=== PATIENT | female | born 1960 | race Caucasian/White ===

== ENCOUNTER → 2018-06-09 14:23 | Outpatient (CLI) | payer OTHER, BC, SELFPAY ==
--- NOTE | 2018-06-09 14:28 | RAD_ITS ---
STUDY: X-RAY - ABDOMEN/PELVIS REASON FOR EXAM: Female, 58 years old. Constipation and diarrhea TECHNIQUE: Two AP supine views of the abdomen and pelvis. COMPARISON: None. FINDINGS: Normal visualized lung bases. There is an unremarkable bowel gas pattern. There is no demonstrated free abdominal air. The visualized liver, spleen and kidneys are grossly normal in size and morphology. Normal soft tissue structures. Normal visualized osseous structures. RAD/Abd Inc Decub and/or Erect IMPRESSION: Normal x-ray examination of the abdomen and pelvis. Electronically Signed: Erickson Cruz MD at 23:31 EDT Tel , Service support ,
== END ==
PROVIDERS: Family Provider Family Medicine; PCP Family Medicine; Visit Provider Family Medicine
DX: R19.7 Diarrhea, unspecified (principal)
CPT/HCPCS: 74019

== ENCOUNTER → 2018-06-20 19:13 | Outpatient (CLI) | payer OTHER, BC, SELFPAY ==
[2018-06-27 13:11] LABS: HPV APTIMA, High Risk Negative
== END ==
PROVIDERS: Visit Provider Obstetrics & Gynecology
DX: Z12.4 Encounter for screening for malignant neoplasm of cervix (principal)
CPT/HCPCS: 88175; G0145

== ENCOUNTER → 2018-07-07 16:25 | Outpatient (CLI) | payer OTHER, BC, SELFPAY ==
--- NOTE | 2018-07-07 16:28 | BI_ITS ---
MAMMOGRAPHY - BILATERAL SCREENING 3-D LOS SYNTHESIS REASON FOR EXAM: Female, 58 years old. Asymptomatic. PERTINENT HISTORY: Paternal grandmother. TECHNIQUE: Digital bilateral breast los (3D mammographic acquisition) in the CC and MLO projections. 2-D mediolateral oblique (MLO) and craniocaudad (CC) views of both breasts were obtained. CAD: Full Field Digital Mammography with Computer Added Detection was performed. COMPARISON: 03/28/2015 digital mammogram, digitized film mammogram 07/30/2009. FINDINGS: The breast composition is heterogeneously dense that can obscure small breast masses. No significant asymmetric density, architecture distortion, abnormal microcalcification cluster, dominant mass, adenopathy, skin thickening or nipple retraction identified. Coarse benign-appearing calcifications. BI/SCREENING MAMM (CAD), BILAT IMPRESSION: No mammographic signs of malignancy. Routine yearly mammograms recommended. ASSESSMENT CATEGORY: BIRADS Category 2: Benign. A letter regarding these results will be sent to the patient by the facility within 30 days. FOLLOW UP RECOMMENDATION: Yearly follow up mammogram recommended. (A) Negative mammographic results should not deter biopsy as a palpable lesion should be followed on clinical grounds and biopsy performed if clinically persistent for 3 months or increasing size. Approximately 10% of breast cancers are not detected by mammography. A normal mammogram should not delay biopsy of a clinically suspicious abnormality. Electronically Signed: Fer Sanon, at 22:34 EDT Tel , Service support ,
== END ==
PROVIDERS: Family Provider Family Medicine; PCP Family Medicine; Visit Provider Obstetrics & Gynecology
DX: Z12.31 Encounter for screening mammogram for malignant neoplasm of breast (principal)
CPT/HCPCS: 77063; 77067

== ENCOUNTER → 2019-01-26 14:45 | Outpatient (CLI) | payer OTHER, BC, SELFPAY ==
[2018-12-01 12:07] VITALS: BMI 21.9
--- NOTE | 2019-01-26 14:50 | RAD_ITS ---
STUDY: X-RAY - THORACIC SPINE REASON FOR EXAM: Female, 58 years old. Back pain. TECHNIQUE: 2 view(s) of the thoracic spine were obtained. COMPARISON: None. FINDINGS: Normal kyphosis of the thoracic spine. There is no substantial scoliosis. Normal thoracic vertebrae and endplates. There is mild disc space narrowing at multiple levels. There is no evidence of acute fracture or loss of vertebral axial height. The soft tissue structures are unremarkable. RAD/Thoracic Spine 3 Views IMPRESSION: Mild degenerative disc disease. Electronically Signed: Carlos Beyer DO at 20:19 EST Tel [phone], Service support ,
== END ==
PROVIDERS: Family Provider Family Medicine; PCP Family Medicine; Referring Provider Family Medicine; Visit Provider Family Medicine
DX: M54.6 Pain in thoracic spine (principal)
CPT/HCPCS: 72072

== ENCOUNTER 2019-04-05 17:00 | Outpatient (RCR) | payer OTHER, BC, SELFPAY ==
[2018-12-01 12:07] VITALS: BMI 21.9
--- NOTE | 2019-02-15 09:17 | HP.PTEVAL ---
Patient's Visit Information LUH DELEON is a 58 year old F referred to Physical Therapy by Francesco Zamora MD with a diagnosis of Thoracic spine pain. Date of Evaluation: 02/15/19 Physical Therapist: Adán Augustin, PT, ATC - Visit Plan Frequency: 2x /Week Duration: 2-4 Weeks Plan: Postural edu, DTR to C/S, scap stab ex's, C Tx, and HEP. Performed trial of CTx today 16#/8#, 30 sec/10 sec x 10 min, assess benefit next Rx - Subjective Findings: Pt reports she has had intermittent T/S pain for 3-4 months. Pt reports the pain is more of an annoyance at this time. Pt reports her neck pain is worse than her back pain and she intends to call her DrSyeda about that today. Pt reports her pain has progressively worsened over this time span. Pt reports now she has occasional difficulty with washing dishes and sleeping secondary to pain. Pt reports she did have recent xrays which revealed degenerative disc disease in her T/S. Pt denies any radiculopathy at this time. Pt denies any prior Hx of T/S pain prior to this episode. 2/10 at rest, 6/10 at worst. - Pain Thoracic spine Pain Intensity (Out of 10): 2 Pain Intensity Range: 6 - Objective Neuro: B UE sensation is WNL to light touch. B bicepital reflex= 2/3. ROM: T/S is WNL in all ranges. Cervical spine is limited with both retraction and extension. Both of those movements produce pain to the T/S region. MMT: B UE's are rated at 5/5 throughout. Repeated movements: RRIS increased neck pain and produced increased T/S sx's. - Goals Goal 1:: Decrease neck and thoracic spine pain x 50% to aid with sleep Goal Time Frame: 2-4 Weeks Goal 2:: Increase C/S ROM to WNL to aid with IADL's Goal Time Frame: 2-4 Weeks Goal 3:: I with HEP Goal Time Frame: 2-4 Weeks - Rehabilitation Potential Physical Therapy Diagnosis: Pt has pain that originates in her neck and extends to the thoracic spine secondary to deg changes in the cervical spine Rehabilitation Potential: Good - Anticipated Interventions Patient/Client Instruction: Educate patient on: Condition, Plan of Care For the Purpose of:: To improve self management Therapeutic Exercise to Include: Strength training, Postural training, French Exercises, Scapular Strength/Stabilization For the Purpose of:: To decrease pain, To increase ROM, To improve muscle performance and motor function Manual Therapy Techniques to Include: Soft tissue mobilization For the Purpose of:: To decrease pain Intermittent cervical traction: Yes For the Purpose of:: To decrease pain Thank you for the opportunity to evaluate your patient. For Medicare and Medicare HMO plans, please review the plan of care and approve it. It will need to be FAXED BACK to us at [phone] for Medicare purposes. For Medicare only, by signing this I certify the plan of care. Please let me know if there are questions or concerns regarding this plan of care. Physician Signature: Date:
--- NOTE | 2019-04-05 17:48 | HP.PTDCSUM ---
HP - PT D/C Summary It has been my pleasure to treat A WILLIAM DELEON under orders from Francesco Palmer MD, for the diagnosis of Thoracic spine pain for a total of 11 visit(s). Discharge Date: 04/05/19 Please see the following information for a summary of their discharge status. - Subjective Subjective: PATIENT REPORTS SHE IS BETTER. SHE REPORTS SHE CAN STAND TO DO DISHES WITH LESS PAIN NOW. SHE THINKS THE STRETCHING HELPED. NO CHANGE IN COMFORT WITH SLEEPING. SLEEP IS STILL DISTURBED. HEP HELPS AND WORK RIGHT NOW INCREASES PAIN AT TIMES. LOOKING DOWN A LOT AGGREVATES IT. HAD A HEADACHE EARLY BUT EX'S ABOLISHED. PATIENT REPORTS SHE WANTS TO TRY TO CONTINUE HER HOME EX'S WITHOUT PT AT THIS TIME. WILL FOLLOW UP WITH DR. PALMER NEEDED. - Pain Thoracic spine Pain Intensity (Out of 10): 0 HEADACHE Pain Intensity (Out of 10): 0 NECK PAIN Pain Intensity (Out of 10): 1 - Overall Improvement % Improvement: 50 - Objective Objective/Function: THIS PATIENT HAS IMPROVED WITH PT BUT STILL HAS SIGNIFICANT SX'S. SHE IS INDEP WITH A HEP AND DEMONSTRATES A GOOD UNDERSTANDING OF ALL INSTRUCTIONS THAT HAVE BEEN GIVEN. Sitting Posture/Standing Posture: FAIR. Active Correction of posture: BETTER. Motor deficit: REYMUNDO UE'S 5/5. Sensory deficit: NO. ROM deficit: WFL REYMUNDO UE'S. Reflexes: NT. Dural Signs: NEGATIVE. Cervical Mvmt Loss: Flex: NIL. Pro: NIL. Ext: MIN. Ret: MIN. RSB: NIL. LSB: NIL. R Rot: NIL. L Rot: NIL. Postural strength: GOOD. Palpation: MILD TENDERNESS RIGHT MEDIAL SCAP REGION. NO CERVICAL OR THORACIC SPINE TENDERNESS. - Goals Goal 1:: Decrease neck and thoracic spine pain x 50% to aid with sleep Goal Progress: Progressing Goal 2:: Increase C/S ROM to WNL to aid with IADL's Goal Progress: Progressing Goal 3:: I with HEP Goal Progress: Goal Met - Plan Plan: D/C TO INDEP HEP. PATIENT IS AGREEABLE. - D/C Information If there are questions or concerns regarding this patient's physical therapy, please feel free to call me at [phone]. Thank you for the referral of this patient. Sincerely, Pattie Castelan, PT, Cert MDT
== END 2019-04-05 19:00 | disposition home or self-care (01) ==
LOC: PT 17:00
PROVIDERS: Family Provider Family Medicine; PCP Family Medicine; Referring Provider Family Medicine; Visit Provider Family Medicine
DX: M54.6 Pain in thoracic spine (principal)
CPT/HCPCS: 97012; 97110; 97140; 97161; 97530

== ENCOUNTER → 2020-06-14 09:57 | Outpatient (CLI) | payer OTHER, BC, SELFPAY ==
[2020-05-14 15:59] VITALS: BMI 21.9
[2020-06-14 12:20] LABS: Erythrocyte Sedimentation Rate 5 mm/hr (0-30)
[2020-06-14 12:22] LABS: Hematocrit 37.5 % (37-47); Hemoglobin 12.2 g/dL (12.0-15.0); Mean Corp Hgb Conc 32.5 g/dL (32-36); Mean Corpuscular Hgb 29.6 pg (27.0-32.0); Mean Platelet Vol. 10.3 fl (6.2-12.0); Platelet Count 253 K/mm3 (150-450); RBC Distribution Width CV 12.8 % (11.6-14.6); RBC Distribution Width SD 42.1 fl (35.1-43.9); Red Blood Count 4.12 M/mm3 (4.2-5.4); White Blood Count 5.4 K/mm3 (4.4-11.0)
[2020-06-14 12:48] LABS: Vitamin B12 846 pg/mL (211-911); Vitamin D,25 Hydroxy 45.2 ng/mL
[2020-06-14 13:03] LABS: AST(SGOT) 21 U/L (15-37); Alanine Aminotransfer ALT/SGPT 27 U/L (13-56); Alkaline Phosphatase 95 U/L (45-117); Anion Gap 5 (5-15); BUN 16 mg/dL (7-18); BUN/Creat Ratio 19.7 RATIO (10-20); Calcium,Total 9.1 mg/dL (8.5-10.1); Chloride 107 mmol/L (98-107); Cholesterol 262 mg/dL (200); Creatinine, Serum 0.81 mg/dL (0.55-1.02); EST Glomerular Filtration Rate 76 mL/min (>60); Est Glom Filt Rate - Afr Amer 92 mL/min (>60); Free T3 2.6 pg/mL (2.18-3.98); Globulin 3.9 g/dL (2.2-4.2); Glucose 80 mg/dL (74-106); High Density Lipoprotein 54 mg/dL; Iron 119 ug/dL (50-170); Potassium 3.7 mmol/L (3.5-5.1); Protein, Total 7.9 g/dL (6.4-8.2); Sodium Level 139 mmol/L (136-145); T4 Free Direct 0.91 ng/dL (0.76-1.46); Thyroid Stim Hormone (TSH) 2.56 uIU/mL (0.358-3.74); Triglycerides 196 mg/dL; Very Low Density Lipoprotein 39 mg/dL (5-40)
== END ==
PROVIDERS: PCP Family Medicine; Referring Provider Family Medicine; Visit Provider Family Medicine
DX: R53.83 Other fatigue (principal); Z13.220 Encounter for screening for lipoid disorders
CPT/HCPCS: 36415; 80053; 80061; 82306; 82533; 82607; 83540; 84439; 84443; 84481; 85027; 85652

== ENCOUNTER → 2020-06-26 16:46 | Outpatient (CLI) | payer OTHER, BC, SELFPAY ==
[2020-06-26 14:17] VITALS: BMI 21.9
== END ==
PROVIDERS: PCP Family Medicine; Referring Provider Nurse Practitioner Women's Health; Visit Provider Nurse Practitioner Women's Health
DX: N89.8 Other specified noninflammatory disorders of vagina (principal)
CPT/HCPCS: 87070; 87205

== ENCOUNTER → 2021-06-27 10:01 | Outpatient (CLI) | payer OTHER, SELFPAY ==
[2021-01-23 10:07] VITALS: BMI 21.9
--- NOTE | 2021-06-27 10:17 | BI_ITS ---
MAMMOGRAPHY - BILATERAL SCREENING 3-D TOMOSYNTHESIS REASON FOR EXAM: Female, 61 years old. Routine screening PERTINENT HISTORY: Grandmother with breast cancer.. TECHNIQUE: 2-D mammograms and 3-D Tomosynthesis of the breast (s) were performed. CAD was performed. COMPARISON: 2018 FINDINGS: The breast composition is heterogeneously dense that can obscure small breast masses. Scattered benign calcifications are seen. No dense spiculated masses or suspicious microcalcifications are identified. No architectural distortion is identified. There is no skin thickening or retraction. There has been no significant change since the prior study. BI/SCRN MAMM (CAD)W/LOS BILAT IMPRESSION: No mammographic signs of malignancy. Routine yearly mammograms recommended. ASSESSMENT CATEGORY: BIRADS Category 2: Benign. A letter regarding these results will be sent to the patient by the facility within 30 days. FOLLOW UP RECOMMENDATION: Yearly follow up mammogram recommended. (A) Approximately 10% of breast cancers are not detected by mammography. A normal mammogram should not delay biopsy of a clinically suspicious abnormality. Electronically Signed: Guilherme Hollingsworth MD at 11:08 EDT , Service support ,
== END ==
PROVIDERS: PCP Family Medicine; Referring Provider Nurse Practitioner Women's Health; Visit Provider Nurse Practitioner Women's Health
DX: Z12.31 Encounter for screening mammogram for malignant neoplasm of breast (principal); Z80.3 Family history of malignant neoplasm of breast
CPT/HCPCS: 77063; 77067

== ENCOUNTER → 2021-10-16 | Outpatient (CLI) | payer OTHER, SELFPAY | END | disposition home or self-care (01) | LOC: LABSPEC 10-17 09:09 | PROVIDERS: PCP Family Medicine; Visit Provider Family Medicine | DX: U07.1 COVID-19 (principal) | CPT/HCPCS: 87635; U0005; U0003 ==

== ENCOUNTER → 2022-07-23 | Outpatient (CLI) | payer BC, SELFPAY ==
--- NOTE | 2022-07-23 15:34 | CT_ITS ---
STUDY: CT ABDOMEN AND PELVIS WITH CONTRAST REASON FOR EXAM: Female, 62 years old. LLQ MEDIAL ABD PAIN *IV ORAL* RADIATION DOSAGE (If Supplied By Facility): CTDIvol = ( 12.73 ) mGy, DLP = ( 408.07 ) mGycm TECHNIQUE: Transaxial images were obtained from the dome of the diaphragm to the symphysis pubis without oral contrast. Oral and amp; IV Gastrografin and amp; 100mL Isovue-300 was administered. Sagittal and coronal images were reconstructed. Individualized dose optimization techniques were used for this CT. COMPARISON: None. FINDINGS: The visualized lung bases are unremarkable. The visualized portions of the heart are within normal limits. Liver is normal size and homogeneous attenuation. There is a tiny hypoattenuated density in the right lobe measuring approximately 4 mm which is too small to characterize. Bile ducts are not dilated.. Normal gallbladder and extrahepatic biliary system. Normal spleen. Normal pancreas. Normal bilateral adrenal glands. Normal right kidney. Normal left kidney. Normal visualized stomach. Normal small intestine. There are diverticular changes in the sigmoid colon with focal segmental thickening of the wall and narrowing the lumen with inflammatory stranding in the fat consistent with acute diverticulitis there is no peridiverticular abscess.. No evidence for acute appendicitis Normal abdominal aorta. Normal inferior vena cava. Normal retroperitoneum. Normal urinary bladder. Uterus not visualized consistent with hysterectomy. Intravaginal pessary is noted. Normal abdominal wall. Lumbar spine demonstrates mild spondylosis CT/Abdomen/Pelvis WITH Contrast IMPRESSION: Acute diverticulitis of the sigmoid colon without evidence for peridiverticular abscess.. Incidental finding of tiny hypoattenuated nodule in the liver which is too small to characterize but may be further assessed with ultrasound or MRI. Electronically Signed: Ronnell Gamble MD at 18:18 EDT ,
[2022-07-23 18:00] LABS: CREATININE FINGERSTICK < 0.9 mg/dL (0.55-1.02); EGFR FINGERSTICK > 60.0000 mL/min (>60)
== END | disposition home or self-care (01) ==
PROVIDERS: PCP Family Medicine; Referring Provider Family Medicine; Visit Provider Family Medicine
DX: R10.32 Left lower quadrant pain (principal)
CPT/HCPCS: 74177; Q9967

== ENCOUNTER → 2022-08-04 | Outpatient (CLI) | payer BC, SELFPAY ==
--- NOTE | 2022-08-04 07:49 | US_ITS ---
STUDY: ABDOMINAL ULTRASOUND - RIGHT UPPER QUADRANT REASON FOR VISIT: Female, 62 years old hepatic lesion TECHNIQUE: Ultrasound evaluation of the right upper quadrant was performed with real-time and static cordoba-scale imaging. TECHNICAL QUALITY: Adequate. COMPARISON: None. FINDINGS: Liver: The liver measures 15.7 cm. There is normal echogenicity of the liver. The bile ducts are within normal limits. There is hepatic color flow. The direction of portal flow is hepatopetal. There is a 4 mm echogenic structure near the lateral border of the right lobe of the liver, without vascularity. This is likely a benign entity. Gallbladder: Normal distended gallbladder. The gallbladder wall measures 2 mm. There is a negative sonographic Roe''s sign. There is no pericholecystic fluid. There are no gallstones. Common Bile Duct (C.B.D.): The common bile duct measures 7 mm. Pancreas: Normal size of the head, body and tail of the pancreas. There is normal echogenicity of the pancreas. There is no demonstrated pancreatic mass or cyst. Right Kidney: Normal size of the right kidney. The right kidney measures 10.5 x 4.9 x 4.6 cm. Normal renal cortex. The right cortex measures 1.1 cm. There is no demonstrated renal mass or cyst. There is no right hydronephrosis. US/Abdomen Limited IMPRESSION: No suspicious sonographic findings, benign echogenic structure near the lateral border of the right lobe of the liver was noted on previous CT. No specific follow-up needed Electronically Signed: Guilherme Hollingsworth MD at 9:16 EDT ,
== END | disposition home or self-care (01) ==
LOC: US 07:48
PROVIDERS: PCP Family Medicine; Referring Provider Family Medicine; Visit Provider Family Medicine
DX: K76.9 Liver disease, unspecified (principal)
CPT/HCPCS: 76705

== ENCOUNTER → 2022-08-18 | Outpatient (CLI) | payer BC, SELFPAY ==
--- NOTE | 2022-08-18 11:56 | BI_ITS ---
MAMMOGRAPHY - BILATERAL SCREENING 3-D TOMOSYNTHESIS REASON FOR EXAM: Female, 62 years old. screening PERTINENT HISTORY: No significant family history. TECHNIQUE: 2-D mammograms and 3-D Tomosynthesis of the breast (s) were performed. CAD was performed. COMPARISON: 06/27/2021 FINDINGS: The breast composition is Extermely dense tissue. Scattered benign calcifications are seen. No dense spiculated masses or suspicious microcalcifications are identified. No architectural distortion is identified. There is no skin thickening or retraction. There has been no significant change since the prior study. BI/SCRN MAMM (CAD)W/LOS BILAT IMPRESSION: No mammographic signs of malignancy. Routine yearly mammograms recommended. ASSESSMENT CATEGORY: BIRADS Category 1: Negative. A letter regarding these results will be sent to the patient by the facility within 30 days. FOLLOW UP RECOMMENDATION: Yearly follow up mammogram recommended. (A) Approximately 10% of breast cancers are not detected by mammography. A normal mammogram should not delay biopsy of a clinically suspicious abnormality. Electronically Signed: Wilner Raphael MD at 12:48 EDT ,
== END | disposition home or self-care (01) ==
LOC: OPBI 11:55
PROVIDERS: PCP Family Medicine; Visit Provider Family Medicine
DX: Z12.31 Encounter for screening mammogram for malignant neoplasm of breast (principal)
CPT/HCPCS: 77063; 77067

== ENCOUNTER → 2022-09-18 | Outpatient (CLI) | payer BC, SELFPAY ==
[2022-09-18 12:34] LABS: Anion Gap 5 (5-15); BUN 13 mg/dL (7-18); BUN/Creat Ratio 15.2 RATIO (10-20); Chloride 107 mmol/L (98-107); Cholesterol 212 mg/dL (200); Creatinine, Serum 0.86 mg/dL (0.55-1.02); EST Glomerular Filtration Rate 71 mL/min (>60); Est Glom Filt Rate - Afr Amer 86 mL/min (>60); Glucose 78 mg/dL (74-106); High Density Lipoprotein 75 mg/dL; Potassium 3.6 mmol/L (3.5-5.1); Sodium Level 140 mmol/L (136-145); Triglycerides 67 mg/dL; Very Low Density Lipoprotein 13 mg/dL (5-40)
[2022-09-18 12:39] LABS: Vitamin D,25 Hydroxy 47.7 ng/mL
== END | disposition home or self-care (01) ==
LOC: MFPLAB 11:10
PROVIDERS: PCP Family Medicine; Referring Provider Family Medicine; Visit Provider Family Medicine
DX: Z13.1 Encounter for screening for diabetes mellitus (principal); Z13.220 Encounter for screening for lipoid disorders; E55.9 Vitamin D deficiency, unspecified
CPT/HCPCS: 36415; 80048; 80061; 82306

== ENCOUNTER 2022-10-16 13:30 | Outpatient (RCR) | payer BC, SELFPAY ==
--- NOTE | 2022-09-01 11:43 | HP.PTEVAL_ITS ---
Patient's Visit Information LUH DELEON is a 62 year old F referred to Physical Therapy by Dr. Jared Reddy MD with a diagnosis of R biceps tendonitis. Date of Evaluation: 09/01/22 Physical Therapist: Adán Augustin, PT, ATC - Visit Plan Frequency: 2x /Week Duration: 3 Weeks Plan: R shoulder rot cuff strengthening, scap stab ex's, UBE, and HEP - Subjective Pt reports R shoulder has been intermittently sore for 10 months. Pt reports her pain became worse approximately 3 weeks ago. Pt notes she is an avid pickle ball player and reports she thinks this may have caused the pain. Pt reports she has had to stop playing pickleball at this time secondary to her pain. Pt is R hand dominant. Pt reports she did receive an injection into her R shoulder last week which has helped to decrease her pain. Pt reports she experiences pain in between her shoulder blades often. Pt notes she did have an xray which revealed no deg changes at this time. No tingling or numbness at this time. Pt reports sleep difficulty at this time secondary to pain. Pt also notes difficulty with bathing at this time as it hurts for her to reach across her body. 0/10 pain at rest, 4/10 pain at worst (after playing pickle ball) - Pain R shoulder Pain Intensity (Out of 10): 0 Pain Intensity Range: 4 - Objective Neuro: B UE sensation is WNL to light touch. B bicipital reflex= 2/3. Palpation: Pt has minor pain over LHB tendon. No obvious deformity at this time. ROM: L shoulder flex= 180, abd= 180, ER= 90, IR WNL; R shoulder flex= 180, abd= 180, ER= 60, WNL. MMT: L shoulder flex= 16, abd= 22, ER= 21, IR= 23#F; R shoulder flex= 15, abd= 21, ER= 13, IR= 21. Special tests: Pos HK and empty can tests - Balance/Special Test Scores Quick DASH Score: 40.9075 - Goals Goal 1:: Decrease R shoulder pain by 50% to aid with sleep Goal Time Frame: 2-4 Weeks Goal 2:: Increase R shoulder ER MMT x 5#F to aid with IADL's Goal Time Frame: 2-4 Weeks Goal 3:: I with HEP Goal Time Frame: 2-4 Weeks - Rehabilitation Potential Physical Therapy Diagnosis: Pt has R shoulder pain, weakness, and limited ROM secondary to R shoulder tendonitis Rehabilitation Potential: Good - Anticipated Interventions Patient/Client Instruction: Educate patient on: Condition, Plan of Care For the Purpose of:: To improve self management Therapeutic Exercise to Include: Strength training, Flexibilty training, Active ROM, Scapular Strength/Stabilization For the Purpose of:: To decrease pain, To increase ROM, To improve muscle performance and motor function Cryotherapy (ice pack, ice massage): Yes For the Purpose of:: To decrease pain, To increase ROM, To improve muscle performance and motor function Thank you for the opportunity to evaluate your patient. For Medicare and Medicare HMO plans, please review the plan of care and approve it. It will need to be FAXED BACK to us at [phone] for Medicare purposes. For Medicare only, by signing this I certify the plan of care. Please let me know if there are questions or concerns regarding this plan of care. Physician Signature: Date:
--- NOTE | 2022-09-23 10:40 | HP.PTREVAL ---
Dr. Jared Reddy MD, It has been my pleasure to treat LUH DELEON over the last 7 visits for R biceps tendonitis. Please see the progress note below for an update on the physical therapy plan of care! Subjective: Pt reports she feels stronger, but is still limited like she was before Objective/Function: R shoulder pain ranges from 0-4/10. R shoulder ROM: B UE's are WFL. R shoulder MMT: ER= 15 #F. Pt is progressing well toward Rx goals Plan Plan: Re-assess in one month. Consider discharge, RTD, or continuance of PT Balance/Gait/Functional tests - Balance/Special Test Scores Quick DASH Score: 9.0900 Goals Goal 1:: Decrease R shoulder pain by 50% to aid with sleep Goal Time Frame: 2-4 Weeks Goal Progress: Goal Met Goal 2:: Increase R shoulder ER MMT x 5#F to aid with IADL's Goal Time Frame: 2-4 Weeks Goal Progress: Progressing Goal 3:: I with HEP Goal Time Frame: 2-4 Weeks Goal Progress: Goal Met Anticipated Interventions Patient/Client Instruction: Educate patient on: Condition, Plan of Care For the Purpose of:: To improve self management Therapeutic Exercise to Include: Strength training, Flexibilty training, Active ROM, Scapular Strength/Stabilization For the Purpose of:: To decrease pain, To increase ROM, To improve muscle performance and motor function Cryotherapy (ice pack, ice massage): Yes For the Purpose of:: To decrease pain, To increase ROM, To improve muscle performance and motor function Please do not hesitate to contact me at [phone] by phone or if you have questions or concerns regarding this new plan of care! Sincerely, Adán Augustin, PT, ATC
--- NOTE | 2022-10-16 14:17 | HP.PTDCSUM ---
It has been my pleasure to treat LUH DELEON referred by Dr. Jared Reddy MD, with the diagnosis of R biceps tendonitis for a total of 8 visit(s). Discharge Date: Please see the following information for a summary of their discharge status. Subjective: I feel like I have gone backwards. I am no better R shoulder Pain Intensity (Out of 10): 2 % Improvement: 0 Objective/Function: R shoulder pain ranges from 2-7/10. R shoulder ROM: flex= 170, abd= 90, ER= 55. R shoulder MMT: flex= 13, abd= 9, ER= 14,IR= 19 #F. Pt is I with HEP Goal 1:: Decrease R shoulder pain by 50% to aid with sleep Goal Progress: Not Progressing Goal 2:: Increase R shoulder ER MMT x 5#F to aid with IADL's Goal Progress: Not Progressing Goal 3:: I with HEP Goal Progress: Goal Met Plan: Discontinue secondary to lack of progress. Return to doctor for probable further Dx testing If there are questions or concerns regarding this patient's physical therapy, please feel free to call me at [phone]. Thank you for the referral of this patient. Sincerely, Adán Augustin, PT, ATC Balance/Gait/Functional tests - Balance/Special Test Scores Quick DASH Score: 36.3627
== END 2022-10-16 19:00 | disposition home or self-care (01) ==
LOC: PT 13:30
PROVIDERS: PCP Family Medicine; Referring Provider Orthopaedic Surgery; Visit Provider Orthopaedic Surgery
DX: M75.21 Bicipital tendinitis, right shoulder (principal)
CPT/HCPCS: 97110; 97161; 97164

== ENCOUNTER → 2023-07-09 | Outpatient (CLI) | payer BC, SELFPAY | END | disposition home or self-care (01) | LOC: LABSPEC 15:39 | PROVIDERS: PCP Family Medicine; Referring Provider Family Medicine; Visit Provider Family Medicine | DX: N94.9 Unspecified condition associated with female genital organs and menstrual cycle (principal) | CPT/HCPCS: 87070; 87205 ==

== ENCOUNTER → 2023-10-07 | Outpatient (CLI) | payer BC, SELFPAY | END | disposition home or self-care (01) | LOC: LABSPEC 16:42 | PROVIDERS: PCP Family Medicine; Referring Provider Nurse Practitioner Women's Health; Visit Provider Nurse Practitioner Women's Health | DX: N89.8 Other specified noninflammatory disorders of vagina (principal) | CPT/HCPCS: 87070; 87205 ==

== ENCOUNTER → 2023-11-18 | Outpatient (CLI) | payer BC, SELFPAY ==
--- NOTE | 2023-11-18 11:02 | BI_ITS ---
MAMMOGRAPHY - BILATERAL SCREENING REASON FOR EXAM: Female, 63 years old. Routine annual screening examination. PERTINENT HISTORY: Grandmother with breast cancer. TECHNIQUE: Digital bilateral breast los (3D mammographic acquisition) in the CC and MLO projections. 2-D mediolateral oblique (MLO) and craniocaudad (CC) views of both breasts were obtained. CAD: Full Field Digital Mammography with Computer Added Detection was performed. COMPARISON: Comparison is made with prior study August 18, 2022 and June 10, 2021. FINDINGS: Breast Composition: The breasts are heterogeneously dense, which may obscure small masses. There are no dominant masses or suspicious calcifications. No other significant abnormalities are identified. There has been no significant change since the prior study. BI/SCRN MAMM (CAD)W/LOS BILAT IMPRESSION: Stable bilateral screening mammogram. Yearly follow-up mammogram recommended. (A) ASSESSMENT CATEGORY: BIRADS Category 1: Negative. A letter regarding these results will be sent to the patient by the facility within 30 days. Approximately 10% of breast cancers are not detected by mammography. A normal mammogram should not delay biopsy of a clinically suspicious abnormality. [id number] Electronically Signed: Oskar Alston MD at 11:43 EST ,
== END | disposition home or self-care (01) ==
LOC: OPBI 11:00
PROVIDERS: PCP Family Medicine; Referring Provider Nurse Practitioner Women's Health; Visit Provider Nurse Practitioner Women's Health
DX: Z12.31 Encounter for screening mammogram for malignant neoplasm of breast (principal)
CPT/HCPCS: 77063; 77067

== ENCOUNTER 2024-07-27 09:00 | Outpatient (RCR) | payer BC, SELFPAY ==
--- NOTE | 2024-04-05 12:35 | HP.PTEVAL_ITS ---
Patient's Visit Information Visit Information Visit Information: LUH DELEON is a 64 year old F referred to Physical Therapy by Dr. Jared Reddy MD with a diagnosis of R RTC tear, DOS: 02/24/24. Date of Evaluation: 04/04/24 Physical Therapist: Nilesh Maciel DPT Visit Plan Frequency: 2-3x /Week Duration: 8 weeks Plan: Start with PROM pf R shoulder, progressing as tolerated. Progress per protocol Use ice and heat for pain control as needed. Subjective Subjective: Pt. is here today for her initial evaluation with diagnosis of R RTC repair. DOS: 02/24/24. Pt. had a massive tear, but non traumatic. Pt. arrives with in sling as prescribed. Pt. denies N/T in either UE. Pt. has been icing a little bit, but not as much as time has gone by. Pt. is sleeping well without major issues. She is to follow back up with physician in 2 weeks. She is staying active and did have questions about playing pickleball again. She is hopeful to get back to golf and pickleball without issues. She has been doing pendulums at home without issues. PMH: she does have a proximal biceps rupture on her R UE. Pain R shoulder: Pain Intensity (Out of 10): 2 Pain Intensity Range: 0 and 4 Objective Objective: POSTURE: Pt. has decent posture in stance. R shoulder in guarded posture. PALPATION: Pt. has great healing incisions, no signs of infection. NEURO: normal sensation throughout BUEs. ROM: R shoulder: PROM: flexion 140deg, abd 130deg, ER at side 35deg. L shoulder full motion without increase in symptoms. MMT: LUE 5/5 throughout. RUE not tested Balance/Special Test Scores Quick DASH Score: 47.7250 Goals Goal 1:: LTG: Pt. to be I with HEP for R shoulder ROM and strengthening. Goal Time Frame: 6-8 Weeks Goal 2:: STG: Pt. to have increased R shoulder PROM to full without increase in symptoms. Goal Time Frame: 2-4 Weeks Goal 3:: STG: Pt. to sleep throughout the night without increase in symptoms. Goal Time Frame: 2 Weeks Goal 4:: LTG: Pt. to have full AROM of R shoulder without increase in symptoms. Goal Time Frame: 4-6 Weeks Goal 5:: LTG: Pt. to have symmetrical strength between BUEs. Goal Time Frame: 8-12 Weeks Rehabilitation Potential Physical Therapy Diagnosis: Pt. has signs and symptoms consistent with R RTC tear DOS: 02/24/24. Pt. has marked hypomobility, weakness, and difficulty with all ADLs and recreational activities. Rehabilitation Potential: Excellent Anticipated Interventions Patient/Client Instruction: Educate patient on: Condition, Plan of Care, Risk Factors and Benefits of Fitness Program For the Purpose of:: To foster healthy habits, To improve decision making, To facilitate caregiver knowledge, To improve self management, To prevent re- injury, To improve ability to perform tasks related to life management and To improve tolerance to ADL's Therapeutic Exercise to Include: Strength training, Body mechanics, Postural training, Flexibilty training, Passive ROM, Active ROM and Scapular Strength/Stabilization For the Purpose of:: To decrease pain, To decrease swelling/inflammation, To increase ROM, To improve nutrient delivery to tissue, To increase oxygenation perfusion, To improve muscle performance and motor function, To improve health of tissue, To decrease soft tissue restriction and To increase flexibility/ROM Cryotherapy (ice pack, ice massage): Yes Thermo therapy (hot pack): Yes For the Purpose of:: To decrease pain, To decrease swelling/inflammation, To increase ROM, To improve nutrient delivery to tissue, To increase oxygenation perfusion and To improve muscle performance and motor function Text: Thank you for the opportunity to evaluate your patient. For Medicare and Medicare HMO plans, please review the plan of care and approve it. It will need to be FAXED BACK to us at [phone] for Medicare purposes. For Medicare only, by signing this I certify the plan of care. Please let me know if there are questions or concerns regarding this plan of care. Physician Signature: Date:
== END 2024-07-27 19:00 | disposition home or self-care (01) ==
LOC: PT 09:00
PROVIDERS: PCP Family Medicine; Visit Provider Orthopaedic Surgery
DX: M75.121 Complete rotator cuff tear or rupture of right shoulder, not specified as traumatic (principal)
CPT/HCPCS: 97110; 97140; 97161; 97530

== ENCOUNTER → 2024-09-27 | Outpatient (CLI) | payer MEDICARE, SELFPAY ==
--- NOTE | 2024-09-27 14:04 | BD_ITS ---
STUDY: DUAL ENERGY X-RAY ABSORPTIOMETRY / DXA REASON FOR EXAM: Female, 64 years old. V76.12ScreeningBONE DENSITY REASON FOR EXAM TECHNIQUE: Bone Mineral Density (BMD) measurements of lumbar spine and bilateral hips were obtained. COMPARISON: None. FINDINGS: Lumbar Spine (L1-L4): g/cm2 (0.784) / T-score (-2.1) / Z-score (-0.3) Findings are suggestive of osteopenia with a high fracture risk. Left Femur Total: g/cm2 (0.663) / T-score (-2.3) / Z-score (-1.0) Left Femoral Neck: g/cm2 (0.615) / T-score (-2.1) / Z-score (-0.5) Right Femur Total: g/cm2 (0.692) / T-score (-2.1) / Z-score (-0.7) Right Femoral Neck: g/cm2 (0.645) / T-score (-1.8) / Z-score (-0.2) BD/Dexa Bone Density Study IMPRESSION: The patient is considered osteopenic as outlined below according to World Carter Organization (WHO) criteria with a high fracture risk. Reference Information: The T-score is the number of standard deviations above or below the standard which is normal for young adults at their peak bone mineral density. The World Health Organization (WHO) interprets the T-scores as follows: Above -1 Normal bone density Between -1 and -2.5 Osteopenia Equal to / or below -2.5 Osteoporosis As a practical clinical guideline, osteopenia may be graded as follows: Mild -1 through -1.5 Moderate -1.6 through -2.0 Severe -2.1 through -2.4 The Z-score is the number of standard deviations above or below age-matched controls. A Z-score of less than -1.5 would be considered abnormal. References: 1. NIH Osteoporosis and Related Bone Diseases www osteo.org 2. International Society for Clinical Densitometry www iscd.org 3. National Osteoporosis Foundation www nof.org Electronically Signed: Oskar Alston MD at 12:24 EST ,
== END | disposition home or self-care (01) ==
PROVIDERS: PCP Family Medicine; Referring Provider Family Medicine; Visit Provider Family Medicine
DX: Z00.00 Encounter for general adult medical examination without abnormal findings (principal); Z78.0 Asymptomatic menopausal state
CPT/HCPCS: 77080

== ENCOUNTER → 2024-10-05 | Outpatient (CLI) | payer MEDICARE, SELFPAY ==
[2024-10-05 14:27] LABS: Ionized Calcium Order ORDER TUBE
[2024-10-05 15:16] LABS: Anion Gap 5 (5-15); BUN 22 mg/dL (7-18); Calcium,Total 9.8 mg/dL (8.5-10.1); Chloride 106 mmol/L (98-107); Creatinine, Serum 0.88 mg/dL (0.55-1.02); EST Glomerular Filtration Rate 68 mL/min (>60); Est Glom Filt Rate - Afr Amer 83 mL/min (>60); Glucose 110 mg/dL (74-106); Magnesium 2.2 mg/dL (1.6-2.6); Phosphorus 4.1 mg/dL (2.5-4.9); Potassium 4.2 mmol/L (3.5-5.1); Sodium Level 139 mmol/L (136-145)
[2024-10-05 16:26] LABS: Ionized Calcium 5.34 mg/dL (4.36-5.20)
[2024-10-06 07:58] LABS: PTHIN 16.6 pg/mL (18.4-80.1)
[2024-10-10 13:08] LABS: Vitamin D 1,25-Dihydroxy 46.3 pg/mL (24.8-81.5)
== END | disposition home or self-care (01) ==
PROVIDERS: PCP Family Medicine; Referring Provider Family Medicine; Visit Provider Family Medicine
DX: M85.80 Other specified disorders of bone density and structure, unspecified site (principal)
CPT/HCPCS: 36415; 80048; 82330; 82652; 83735; 83970; 84100; 84443

== ENCOUNTER → 2024-10-23 | Outpatient (CLI) | payer MEDICARE, SELFPAY ==
[2024-10-23 15:47] LABS: Erythrocyte Sedimentation Rate 16 mm/hr (0-30)
[2024-10-23 15:54] LABS: AST(SGOT) 77 U/L (15-37); Alanine Aminotransfer ALT/SGPT 114 U/L (13-56); Albumin, Serum 4.1 g/dL (3.2-5.0); Alkaline Phosphatase 110 U/L (45-117); Bilirubin, Direct 0.07 mg/dL (0.00-0.30); CRP < 2.90 mg/L (0.0-3.0); Ferritin 94 ng/mL (8-252); Globulin 4.1 g/dL (2.2-4.2); Iron 93 ug/dL (50-170); Protein, Total 8.2 g/dL (6.4-8.2); Vitamin B12 > 2000 pg/mL (211-911)
== END | disposition home or self-care (01) ==
LOC: MFPLAB 12:20
PROVIDERS: PCP Family Medicine; Visit Provider Family Medicine
DX: R53.83 Other fatigue (principal)
CPT/HCPCS: 36415; 80076; 82607; 82728; 83540; 85652; 86140

== ENCOUNTER → 2024-10-25 | Outpatient (CLI) | payer MEDICARE, SELFPAY ==
[2024-10-25 11:49] LABS: (24 HR) Urine Calcium 174.8 mg/24 HR (42.0-353.0); 24HR UR TOTAL VOLUME 2300 ml; Calcium Urine pH Range 2; Urine Calcium (Random) 7.6 mg/dL (Not Estab.)
== END | disposition home or self-care (01) ==
LOC: MTLAB 07:36
PROVIDERS: PCP Family Medicine; Referring Provider Family Medicine; Visit Provider Family Medicine
DX: E83.52 Hypercalcemia (principal)
CPT/HCPCS: 81050; 82340

== ENCOUNTER → 2024-12-01 | Outpatient (CLI) | payer MEDICARE, SELFPAY ==
--- NOTE | 2024-12-01 09:54 | BI_ITS ---
MAMMOGRAPHY - BILATERAL SCREENING 3-D TOMOSYNTHESIS REASON FOR EXAM: Female, 64 years old. Screening for breast cancer PERTINENT HISTORY: Grandmother with breast cancer.. TECHNIQUE: 2-D mammograms and 3-D Tomosynthesis of the breast (s) were performed. CAD was performed. COMPARISON: 08/18/2022 FINDINGS: The breast composition is composed of scattered fibroglandular density. Scattered benign calcifications are seen. No dense spiculated masses or suspicious microcalcifications are identified. No architectural distortion is identified. There is no skin thickening or retraction. There has been no significant change since the prior study. BI/SCRN MAMM (CAD)W/LOS BILAT IMPRESSION: No mammographic signs of malignancy. Routine yearly mammograms recommended. ASSESSMENT CATEGORY: BIRADS Category 1: Negative. A letter regarding these results will be sent to the patient by the facility within 30 days. FOLLOW UP RECOMMENDATION: Yearly follow up mammogram recommended. (A) Approximately 10% of breast cancers are not detected by mammography. A normal mammogram should not delay biopsy of a clinically suspicious abnormality. Electronically Signed: Guilherme Hollingsworth MD at 11:29 EST ,
== END | disposition home or self-care (01) ==
LOC: OPBI 09:54
PROVIDERS: PCP Family Medicine; Referring Provider Nurse Practitioner Women's Health; Visit Provider Nurse Practitioner Women's Health
DX: Z12.31 Encounter for screening mammogram for malignant neoplasm of breast (principal)
CPT/HCPCS: 77063; 77067

== ENCOUNTER → 2025-02-02 | Outpatient (CLI) | payer MEDICARE, SELFPAY ==
[2025-02-02 11:46] LABS: Ionized Calcium Order ORDER TUBE
[2025-02-02 13:05] LABS: Anion Gap 12 (5-15); BUN 16 mg/dL (4-19); BUN/Creat Ratio 17.8 RATIO (10-20); Calcium,Total 9.7 mg/dL (7.6-11.0); Carbon Dioxide 24.1 mmol/L (21.0-32.0); Chloride 103 mmol/L (98-108); Creatinine, Serum 0.87 mg/dL (0.70-1.20); EST Glomerular Filtration Rate 73 (>60); Glucose 91 mg/dL (70-99); Potassium 4.1 mmol/L (3.3-5.1); Sodium Level 138 mmol/L (133-145); Vitamin D,25 Hydroxy 44.7 ng/mL (30-100)
[2025-02-02 13:50] LABS: Ionized Calcium 1.28 mmol/L (1.09-1.30)
[2025-02-05 17:08] LABS: PROEL- A/G Ratio 1.1 (0.7-1.7); PROEL- Albumin 3.8 g/dL (2.9-4.4); PROEL- Alpha-1 Globulin 0.3 g/dL (0.0-0.4); PROEL- Alpha-2 Globulin 0.7 g/dL (0.4-1.0); PROEL- Beta Globulin 1.1 g/dL (0.7-1.3); PROEL- Gamma Globulin 1.4 g/dL (0.4-1.8); PROEL- Globulin, Total 3.4 g/dL (2.2-3.9); PROEL- TOTAL PROTEIN 7.2 g/dL (6.0-8.5); PROEL-M-Spike Not Observed g/dL (Not Observed)
[2025-02-06 14:08] LABS: Vitamin D 1,25-Dihydroxy 35.5 pg/mL (24.8-81.5)
== END | disposition home or self-care (01) ==
LOC: MFPLAB 10:44
PROVIDERS: PCP Family Medicine; Referring Provider Family Medicine; Visit Provider Family Medicine
DX: E55.9 Vitamin D deficiency, unspecified (principal); R53.83 Other fatigue
CPT/HCPCS: 36415; 80048; 82306; 82330; 82652; 84165

== ENCOUNTER 2025-07-17 15:30 | Outpatient (RCR) | payer MEDICARE, SELFPAY ==
--- NOTE | 2025-06-04 10:46 | HP.PTEVAL ---
Patient's Visit Information Visit Information Visit Information: LUH DELEON is a 65 year old F referred to Physical Therapy by Dr. Wally Zamora MD with a diagnosis of L groin pain. Date of Evaluation: 06/04/25 Physical Therapist: Tato Colin, DPT, OCS, CSCS Visit Plan Frequency: 2-3x /Week Duration: 4-6 Weeks Plan: 2-3x/week for 3-6 weeks as needed. IE HEP: SLR abd /ext 3x10, BTB clamshell and banded bridges 3x10, quad stretch 30" 4x all daily and get on court and hit ball around within tolerance. Treat with educate on progress home core ex, gym hip and core ex to I, wean back to sports specific change direction, pivot, short jogs for pickleball. ice as needed. Subjective Subjective: Playing pickleball and L groin pain. happened 3 weeks ago on the court. A week off and then a week of vacation. Now home for a week. The last week has been good. Mostly unnoticeable. Now and then might get a light ache for a minute or less. HEP from google: Knee butteerfly ROM, pelvic tilts, bridges, clamshells and SLR hip adduction, abduction. No previous hip pain to speak of. L patella gets tight sometimes and she streetches it. Prior exercise: walking for fitness and dog. pickle ball is 2-3 x/week but not lately. Retired. Slkeeping well now but it did keep rei up at first. Basic ADLs going Ok right now. Pain L groin pain.: Pain Intensity (Out of 10): 0 Pain Intensity Range: 0 and 7 Comment: not painful in a while Objective Objective: Walks into PT I wihtout any pain or antalgia, marches, butt kicks, toe walk adn steps reciprocally no rail I without pain today. Tenderness in groin is hard to find, hip flexors and abductors without tenderness today. - SHANTE and FADDIR B but IR L limited to 4 vs 8 on R. Er symmetrical, flexion past 115 no pain B. extension to 12 degrees B. strength in hip flexion is 4+ B, abd and ext 3+ B weakest in glut med. Not painful. knee adn ankle streength 5/5 B. Lumbar ROM WFL and without pain. sensation LE WNL to gross light touch B. good b alance today. Balance/Special Test Scores Lower Extremity Functional Score: 62 Goals Goal 1:: I appropriate hip and core strength exercises to limit future problems. Goal Time Frame: 4-6 Weeks Goal 2:: Back to full pickle ball schedule without pain Goal Time Frame: 4-6 Weeks Goal 3:: 70 LEFS Goal Time Frame: 4-6 Weeks Rehabilitation Potential Physical Therapy Diagnosis: L groin pain likely degenerative in nature and effecting comfortable funciton. Rehabilitation Potential: Good Anticipated Interventions Patient/Client Instruction: Educate patient on: Condition and Plan of Care For the Purpose of:: To decrease pain, To increase ROM, To improve muscle performance and motor function, To increase tolerance to activity/condition/position, To improve ability of physical actions for home/community/work/leisure and To improve gait and locomotor functions Therapeutic Exercise to Include: Strength training, Flexibilty training, Gait and locomotor training, Passive ROM and Active ROM For the Purpose of:: To decrease pain, To improve nutrient delivery to tissue, To improve muscle performance and motor function and To increase tolerance to activity/condition/position Cryotherapy (ice pack, ice massage): Yes For the Purpose of:: To decrease swelling/inflammation Text: Thank you for the opportunity to evaluate your patient. For Medicare and Medicare HMO plans, please review the plan of care and approve it. It will need to be FAXED BACK to us at [phone] for Medicare purposes. For Medicare only, by signing this I certify the plan of care. Please let me know if there are questions or concerns regarding this plan of care. Physician Signature: Date:
--- NOTE | 2025-09-25 10:46 | HP.PT.NRP ---
Patient Information Patient Information: LUH DELEON was seen in my office for initial evaluation on 06/04/25. The following Plan of Care was established for this patient: POC Established Initial Frequency: 2-3x /Week Initial Duration: 4-6 Weeks Anticipated Interventions Patient/Client Instruction: Educate patient on: Condition and Plan of Care For the Purpose of:: To decrease pain, To increase ROM, To improve muscle performance and motor function, To increase tolerance to activity/condition/position, To improve ability of physical actions for home/community/work/leisure and To improve gait and locomotor functions Therapeutic Exercise to Include: Strength training, Flexibilty training, Gait and locomotor training, Passive ROM and Active ROM For the Purpose of:: To decrease pain, To improve nutrient delivery to tissue, To improve muscle performance and motor function and To increase tolerance to activity/condition/position Cryotherapy (ice pack, ice massage): Yes For the Purpose of:: To decrease swelling/inflammation Last Seen Last Seen: This patient was last seen in our office 07/17/25. Pertinent comments regarding their Physical therapy will appear below: Pt seen 8 visits of PCO and worked to I with exercises adn per plan will disocntinue from PT at this time to I. At this point I will be discontinuing this patient from physical therapy. I would be happy to see this patient again in the future if found appropriate by the physician. Thank you! Tato Colin, DPT, OCS, CSCS Balance/Gait/Functional tests Balance/Special Test Scores Lower Extremity Functional Score: 80
== END 2025-07-17 19:00 | disposition home or self-care (01) ==
LOC: PT 15:30
PROVIDERS: PCP Family Medicine; Referring Provider Family Medicine; Visit Provider Family Medicine
DX: R10.2 Pelvic and perineal pain (principal)
CPT/HCPCS: 97110; 97161; 97530

== ENCOUNTER → 2025-10-12 | Outpatient (CLI) | payer MEDICARE, SELFPAY | END | disposition home or self-care (01) | LOC: LABSPEC 11:56 | PROVIDERS: PCP Family Medicine; Visit Provider Obstetrics & Gynecology | DX: N89.8 Other specified noninflammatory disorders of vagina (principal) | CPT/HCPCS: 87070; 87205 ==